=== PATIENT | male | born 1960 | race African-American/Black ===

== ENCOUNTER 2016-09-18 07:57 | Emergency (ER) | payer OTHER ==
--- NOTE | ~2016-09-18 | CT14 ---
[facility] A Service of [facility] RADIOLOGY TEXT RESULTS PATIENT: ROMA AC LOCATION: [facility] : 58 UNIT #: [id number] AGE: [address]: Sandhya Chun MD SEX: M ORDER DR: [id number] [facility] [address] [place], [place] [address] [id number] MR#: [id number] Acc #: [id number] NAME: ROMA AC : 1960 SEX: M STUDY DATE/TIME: 09/18/2016 8:45 UNIT: [facility] ROOM: STUDY DESCRIPTION: CT Angio Abdomen and Pelvis Attending Physician: Sandhya Chun M.D. Ordering Physician: Sandhya Chun M.D. Primary Care Physician: No Primary Care Physician MEDICAL IMAGING REPORT This report is preliminary unless electronic signature is present EXAM CT angiogram of the abdomen and pelvis. HISTORY Back pain for 4 days; concern for acute aortic pathology. TECHNIQUE CT angiogram of the abdomen and pelvis was performed following the administration of IV contrast. Coronal, sagittal, and 3-D reformatted images were obtained. This CT exam was performed with one or more of the following radiation dose reduction techniques: automatic exposure control, adjustment of mA and/or kV according to patient size, and iterative reconstruction. COMPARISON There are no comparisons. FINDINGS CT ANGIOGRAM: The aorta is normal. The iliac arteries are normal. The visceral arteries are within normal limits. CT OF THE ABDOMEN: There is minimal scarring or atelectasis in the dependent portion of the left lung. The liver, gallbladder, and spleen are unremarkable. The kidneys, adrenal glands, and pancreas are unremarkable. PELVIS: There are scattered diverticula within the colon. The appendix is normal. There is no free fluid. Bone window demonstrate degenerative changes involving the SI joints and the lumbar spine. IMPRESSION No acute abnormality. Normal aorta. Normal CT angiogram of the abdomen and pelvis. [facility] A Service of [facility] RADIOLOGY TEXT RESULTS PATIENT: ROMA AC LOCATION: [facility] : 58 UNIT #: [id number] AGE: [address]: Sandhya Chun MD SEX: M ORDER DR: Dictated by... Derick Silva M.D. THIS IS AN ELECTRONICALLY VERIFIED REPORT Derick Silva M.D. at 09/18/2016 11:53 AM BRAD/jaswant TD: 09/18/2016 11:30 JOB #: [id number] MEDICAL IMAGING REPORT Page 1 of 1 COPY
--- NOTE | ~2016-09-18 | CR181 ---
[facility] A Service of [facility] RADIOLOGY TEXT RESULTS PATIENT: ROMA AC LOCATION: [facility] : [birth year] UNIT #: [id number] AGE: [address]: Sandhya Chun MD SEX: M ORDER DR: [id number] [facility] [address] [place], [place] [address] [id number] MR#: [id number] Acc #: [id number] NAME: ROMA AC : 1960 SEX: M STUDY DATE/TIME: 09/18/2016 7:20 UNIT: [facility] ROOM: STUDY DESCRIPTION: CR Lumbar Spine 2 or 3 Views Attending Physician: Sandhya Chun M.D. Ordering Physician: Sandhya Chun M.D. Primary Care Physician: Primary Care Physician No MEDICAL IMAGING REPORT This report is preliminary unless electronic signature is present EXAM Lumbar spine 2 views INDICATION 56-year-old male with low back pain for 4 days. No known injury. COMPARISON No comparisons. FINDINGS There is grade 1 anterolisthesis of L3 on L4 and L4 on L5. Mild multilevel degenerative disc space narrowing. Multilevel facet hypertrophy. IMPRESSION Degenerative changes as described. Dictated by... Derick Silva M.D. THIS IS AN ELECTRONICALLY VERIFIED REPORT Derick Silva M.D. at 09/18/2016 11:53 AM Swapna TD: 09/18/2016 09:34 JOB #: [id number] MEDICAL IMAGING REPORT Page 1 of 1 COPY
[2016-09-18 07:24] LABS: BASOPHIL# 0.1 X10e3 (0-0.3); BASOPHIL% 1.1 % (0-2.5); EOSINOPHIL% 0.8 % (0.0-7.0); HEMATOCRIT 42.3 % (38.0-50.0); HEMOGLOBIN 14.3 gm/dL (13.0-16.0); LYMPHOCYTE# 2.1 X10e3 (1.0-3.5); MEAN CELL VOLUME 90.5 FL (83-96); MEAN CORPUSCULAR HEMOGLOBIN 30.7 PG (28-34); MEAN CORPUSCULAR HGB CONC 33.9 g/dL (30-36); MEAN PLATELET VOLUME 10.3 FL (6.5-11.5); MONOCYTE# 0.6 X10e3 (0-1.0); MONOCYTE% 10.4 % (3.0-12.0); NEUTROPHIL# 3.2 X10e3 (1.5-7.1); NEUTROPHIL% 52.7 % (40-75); PLATELET COUNT 221 X10e3 (140-420); RED BLOOD COUNT 4.67 X10e (3.90-5.60); RED CELL DISTRIBUTION WIDTH 13.2 % (11.0-15.5)
[2016-09-18 07:28] LABS: DIFF IND NO
[2016-09-18 07:55] LABS: ALBUMIN SERUM 4.2 g/dL (3.5-5.0); BILIRUBIN, DIRECT 0.2 mg/dL (0.0-0.2); BILIRUBIN,INDIRECT 0.8 mg/dL (0.0-0.9); BUN/CREATININE RATIO 12.85; CALCIUM SERUM 9.3 mg/dL (8.4-10.2); CREATININE SERUM 1.4 mg/dL (0.6-1.4); GLOM FILT RATE Estimated 55.4 mL/min (>60); POTASSIUM 4.4 mmol/L (3.5-5.1); PROTEIN TOTAL SERUM 8.7 g/dL (6.0-8.3)
[2016-09-18 07:57] LABS: URINE SOURCE CLEAN CATCH
[2016-09-18 08:13] LABS: URINE APPEARANCE CLEAR; URINE BILIRUBIN NEG (NEG); URINE BLOOD 2+ (NEG); URINE COLOR DK YELLOW; URINE GLUCOSE NEG (NEG); URINE KETONE TRACE (NEG); URINE LEUKOCYTE ESTERASE NEG (NEG); URINE NITRATE NEG (NEG); URINE PROTEIN 2+ (NEG); URINE SPECIFIC GRAVITY 1.043 (1.003-1.035)
[2016-09-18 08:17] LABS: URINE BACTERIA AUWI NEG (NEGATIVE); URINE SQUAMOUS EPITHELIAL CELL NONE SEEN /[HPF]; UWBCS1 AUWI 0-2 (0-5)
[2016-09-18 08:23] LABS: CULTURE INDICATED? NO
[2016-09-18 09:59] LABS: AMPHETAMINE NEG (NEG); BARBITURATES NEG (NEG); BENZODIAZEPINES NEG (NEG); COCAINE NEG (NEG); MARIJUANA NEG (NEG); OPIATES NEG (NEG); TRICYCLIC ANTIDEPRESSANTS NEG (NEG); U METHADONE NEG (NEG)
== END 2016-09-18 11:15 | disposition home or self-care (01) ==
LOC: CED 07:57
PROVIDERS: Emergency Medicine
DX: S39.92XA Unspecified injury of lower back, initial encounter (principal); F17.200 Nicotine dependence, unspecified, uncomplicated; X58.XXXA Exposure to other specified factors, initial encounter; Y92.89 Other specified places as the place of occurrence of the external cause
CPT/HCPCS: 36415; 72100; 74174; 80048; 80076; 80307; 81003; 82550; 85025; 96360; 96372; 99284; J1885; Q9967